=== PATIENT | male | born 1965 | race Caucasian/White ===

== ENCOUNTER 2016-11-16 17:24 | Emergency (ER) | payer OTHER ==
[~2016-11-16] VITALS: Ht 177.8 cm; Wt 83.9 kg
[~2016-11-16 17:24] MED LIST: PERCOCET 5/3251 TAB PO; SOMA350 MG PO; TYLENOL ES500 MG PO
[2016-11-16 17:58] VITALS: BP 158/90
--- NOTE | 2016-11-16 18:20 | NUR ---
PATIENT PRESENTS TO ED WITH JENNIFFER UPPER THIGH ABSCESS X 5 DAYS; HX HTN, HEP C, SKIN POP/IVDA; DENIES N/V/D; SKIN IS PINK/WARM/DRY; AAOX4 WITH EVEN AND STEADY GAIT; LUNGS CLEAR BL; HR EVEN AND REGULAR; PT DENIES ANY FEVER, CP, SOB, OR COUGH AT THIS TIME; PATIENT STATES PAIN OF 9/10 AT THIS TIME; VSS; PATIENT POSITIONED FOR COMFORT; HOB ELEVATED; BEDRAILS UP X2; BED DOWN. ER MD MADE AWARE OF PT STATUS.
--- NOTE | 2016-11-16 18:30 | NUR ---
COOPERATIVE PT PLACED ON MONITOR, C/O PAIN MOSTLY ON RIGHT UPPER THIGH WITH ABSCESS 05/22, MD AWARE
--- NOTE | 2016-11-16 19:24 | NUR ---
REPORT GIVEN TO DAVID DODD
[2016-11-16] MEDS ORDERED: NACL 0.9% 1,000 ML IV SCH (19:37)
[2016-11-16] MEDS ORDERED: NACL 0.9% 1,000 ML IV ONE (19:40)
--- NOTE | 2016-11-16 19:44 | NUR ---
PT REFUSED AN IV LINE AND ANY BLOOD DRAWN AFTER BEING STUCK X 4 TIMES BY THREE DIFFERENT NURSES. ER NOTIFIED.
[2016-11-16] MEDS ORDERED: AMPICILLIN/SULBACTAM 3 GM in NACL 0.9% 100 ML IV ONE (19:45)
[2016-11-16] MEDS ORDERED: HYDROmorphone 1 MG/ML AMP IVP ONE (19:45)
--- NOTE | 2016-11-16 19:58 | NUR ---
PT SIGNED AMA. MANNY NARANJO SPEAKING TO PT.
--- NOTE | 2016-11-16 20:10 | NUR ---
DR. RODRIGUEZ AT BEDSIDE.
[2016-11-16] MEDS ORDERED: HYDROmorphone 1 MG/ML AMP IM ONE (20:55)
[2016-11-16] MEDS ORDERED: AMPICILLIN/SULBACTAM 3 GM VIAL IM ONE (20:55)
[2016-11-16] MEDS ORDERED: AMPICILLIN/SULBACTAM 3 GM VIAL ONE (21:02)
[2016-11-16] MEDS ORDERED: WATER STERILE 10 ML MC ONE (21:04)
[2016-11-16 21:26] VITALS: BP 134/85
--- NOTE | 2016-11-16 21:26 | NUR ---
Patient discharged with v/s stable. Written and verbal after care instructions given and explained. Patient alert, oriented and verbalized understanding of instructions. Ambulatory with steady gait. All questions addressed prior to discharge. ID band removed. Patient advised to follow up with PMD. Rx of CLEOCIN AND TYLENOL WITH CODEINE given. Patient educated on indication of medication including possible reaction and side effects. Opportunity to ask questions provided and answered.
== END 2016-11-16 21:26 | disposition home or self-care (01) ==
LOC: MED 17:24
DX: L02.415 Cutaneous abscess of right lower limb (principal); F11.23 Opioid dependence with withdrawal; F17.210 Nicotine dependence, cigarettes, uncomplicated; I10 Essential (primary) hypertension; Z71.6 Tobacco abuse counseling; Z88.6 Allergy status to analgesic agent; Z88.1 Allergy status to other antibiotic agents
CPT/HCPCS: 96372; 99284; J0295; J1170

== ENCOUNTER 2020-12-19 06:26 | Day surgery (SDC) | payer OTHER, SELFPAY ==
[~2020-12-19] VITALS: Ht 177.8 cm; Wt 83.9 kg
[~2020-12-19 06:26] MED LIST changes: +ACET-6134 PO; +CARI350T PO; +OXYC1TAB PO; -PERCOCET 5/3251 TAB PO; -SOMA350 MG PO; -TYLENOL ES500 MG PO
[2020-12-19] MEDS ORDERED: fentaNYL citrate 0.05 MG/ML VIAL ONE (10:57)
[2020-12-19] MEDS ORDERED: MIDAZOLAM 5 MG/5 ML VIAL ONE (10:58)
[2020-12-19] MEDS ORDERED: MIDAZOLAM 2 MG/2 ML VIAL ONE (11:23)
[2020-12-19] MEDS ORDERED: MIDAZOLAM 2 MG/2 ML VIAL IVP ONE (14:40)
[2020-12-19] MEDS ORDERED: fentaNYL citrate 0.05 MG/ML VIAL IVP ONE (14:40)
== END 2020-12-19 12:25 | disposition home or self-care (01) ==
LOC: MDS 06:26 → MMU 06:27 → MDS 12:25
PROVIDERS: ATTEND Internal Medicine Gastroenterology
DX: D50.0 Iron deficiency anemia secondary to blood loss (chronic) (principal); D12.5 Benign neoplasm of sigmoid colon; K22.70 Barrett's esophagus without dysplasia; B18.2 Chronic viral hepatitis C; Z86.19 Personal history of other infectious and parasitic diseases; Z20.828 Contact with and (suspected) exposure to other viral communicable diseases
CPT/HCPCS: 36415; 43239; 45385; 86677; J2250; J3010; J7030; U0003

== ENCOUNTER 2024-06-08 22:19 | Emergency (ER) | payer MEDICAID, OTHER ==
[~2024-06-08] VITALS: Ht 177.8 cm; Wt 86.2 kg
[~2024-06-08 22:19] MED LIST changes: -ACET-6134 PO; +ACET500T99 PO
[2024-06-08 22:22] VITALS: BP 115/68; PULSE 96; RESP 16; TEMP 98; O2SAT 98
[2024-06-08 23:06] LABS: BASOPHILS % (AUTO) 0.7 % (0.0-2.0); EOSINOPHILS % (AUTO) 0.4 % (0.0-4.0); HEMATOCRIT 28.6 % (36-52); HEMOGLOBIN 9.9 g/dL (12.0-18.0); LYMPHOCYTES # (AUTO) 0.9 K/uL (2.0-11.5); MEAN CORPUSCULAR HEMOGLOBIN 34 pg (27-31); MEAN CORPUSCULAR HGB CONC 35 g/dL (33-37); MEAN CORPUSCULAR VOLUME 96.6 fL (80-94); MONOCYTES # (AUTO) 0.7 K/uL (0.8-1.0); MONOCYTES % (AUTO) 12.6 % (1.7-9.3); NEUTROPHILS # (AUTO) 3.6 K/uL (1.8-7.7); NEUTROPHILS % (AUTO) 68.3 % (42.2-75.2); PLATELET COUNT (AUTO) 92 K/uL (140-450); RED BLOOD CELL COUNT(AUTO) 2.96 MIL/uL (4.20-6.10); RED CELL DISTRIBUTION WIDTH 14.7 % (11.6-13.7); WHITE BLOOD COUNT (AUTO) 5.2 K/uL (4.8-10.8)
[2024-06-08 23:10] LABS: ANION GAP 6.8 (8-16); CALCIUM 8.2 mg/dL (8.5-10.1); CARBON DIOXIDE 34.7 mmol/L (21-32); CREATININE 2.2 mg/dL (0.6-1.3)
[2024-06-08 23:14] LABS: ALBUMIN 2.4 g/dL (3.4-5.0); BILIRUBIN,DIRECT 0.7 mg/dL (0.0-0.3); TOTAL BILIRUBIN 1.6 mg/dL (0.0-1.0); TOTAL PROTEIN, SERUM 6.9 g/dL (6.4-8.2)
[2024-06-08 23:19] LABS: INR 1.27 (0.8-1.2); PARTIAL THROMBOPLASTIN TIME 25.6 secs (22-35.6); PROTHROMBIN TIME 13.1 secs (10.8-13.4)
[2024-06-08 23:32] LABS: POTASSIUM 2.5 mmol/L (3.5-5.1)
[2024-06-09] MEDS: ACETAMINOPHEN 325 MG TAB PO ONE (00:02)
[2024-06-09] MEDS: FAMOTIDINE 20 MG TAB PO ONE (00:04)
[2024-06-09] MEDS: POTASSIUM CHLORIDE 20% 40 MEQ/15 ML UDC PO ONE ×2 (00:05→02:28)
[2024-06-09] MEDS: ALUMINUM HYD/MAG/SIMETHICONE 30 ML UDC PO ONE (00:06)
[2024-06-09 02:36] VITALS: BP 115/68; PULSE 96; RESP 16; TEMP 98; O2SAT 98
== END 2024-06-09 02:35 | disposition home or self-care (01) ==
LOC: MED 22:19
DX: K74.60 Unspecified cirrhosis of liver (principal); R18.8 Other ascites; E87.6 Hypokalemia; I10 Essential (primary) hypertension; Z98.890 Other specified postprocedural states; Z96.642 Presence of left artificial hip joint; Z79.899 Other long term (current) drug therapy; Z88.1 Allergy status to other antibiotic agents; Z88.5 Allergy status to narcotic agent
CPT/HCPCS: 36415; 76700; 80048; 80076; 83690; 85025; 85610; 85730; 99284; Q0092